=== PATIENT | female | born 1955 | race Caucasian/White ===

== ENCOUNTER 2016-04-05 16:54 | Inpatient (IN) | payer BC ==
[2016-04-05] MEDS ORDERED: ALPRAZolam TAB* 0.5 MG PO PRN (17:22)
[2016-04-05] MEDS: NS 0.9% 1000 ML* 1,000 ML IV SCH (18:04)
[2016-04-05] MEDS: Enoxaparin(*) 40 MG/0.4 ML SYR SUBCUT SCH (21:19)
[2016-04-05] MEDS ORDERED: oxyCODONE/Acetamin 5/325 MG* TAB ONE (23:59)
[2016-04-06] MEDS ORDERED: cefTAZidime 2 GM in NS 0.9% 100 ML* 100 ML IVPB SCH ×2
[2016-04-06] MEDS: CEFTAZIDIME 2 GM IVPB SCH ×8 (00:08→23:53)
[2016-04-06] MEDS: NS 0.9% 1000 ML* 1,000 ML IV SCH ×3 (04:47→22:47)
[2016-04-06 06:44] LABS: Hematocrit 26 % (35-47); Hemoglobin 8.3 g/dl (12.0-16.0); Mean Corpuscular HGB Conc 32 g/dl (31-36); Mean Corpuscular Hemoglobin 30 pg (27-31); Mean Corpuscular Volume 93 fL (80-97); Mean Platelet Volume 8 um3 (7.4-10.4); Red Blood Count 2.75 10^6/ul (4.0-5.4); Red Cell Distribution Width 17 % (10.5-15); White Blood Count 11.9 10^3/ul (3.5-10.8)
[2016-04-06 06:54] LABS: Albumin 2.8 g/dL (3.2-5.2); BUN/Creatinine Ratio 12.5 (8-20); Calcium 8.2 mg/dL (8.6-10.3); EGFR African American 121.3 (>60); EGFR Non-African American 94.3 (>60); Globulin 2.8 g/dL (2-4); Potassium 3.8 mmol/L (3.5-5.0); Total Bilirubin 0.5 mg/dL (0.2-1.0); Total Protein 5.6 g/dL (6.4-8.9)
[2016-04-06] MEDS: Enoxaparin(*) 40 MG/0.4 ML SYR SUBCUT SCH (16:24)
[2016-04-06] MEDS: oxyCODONE/Acetamin 5/325 MG* TAB PO PRN (19:16)
[2016-04-07] MEDS: oxyCODONE/Acetamin 5/325 MG* TAB PO PRN ×2 (05:05→16:00)
[2016-04-07 05:33] LABS: Hematocrit 25 % (35-47); Hemoglobin 8.1 g/dl (12.0-16.0); Mean Corpuscular HGB Conc 33 g/dl (31-36); Mean Corpuscular Hemoglobin 31 pg (27-31); Mean Corpuscular Volume 92 fL (80-97); Mean Platelet Volume 8 um3 (7.4-10.4); Red Blood Count 2.66 10^6/ul (4.0-5.4); Red Cell Distribution Width 17 % (10.5-15); White Blood Count 10.6 10^3/ul (3.5-10.8)
[2016-04-07] MEDS ORDERED: NS 0.9% 1000 ML* 1,000 ML IV SCH (08:00)
[2016-04-07] MEDS: CEFTAZIDIME 2 GM IVPB SCH ×6 (08:46→23:51)
[2016-04-07] MEDS: Enoxaparin(*) 40 MG/0.4 ML SYR SUBCUT SCH (17:41)
[2016-04-08] MEDS: oxyCODONE/Acetamin 5/325 MG* TAB PO PRN ×2 (04:21→08:36)
[2016-04-08 07:36] VITALS: BP 90/53
[2016-04-08] MEDS: CEFTAZIDIME 2 GM IVPB SCH ×2 (08:39)
--- NOTE | 2016-04-08 09:47 | DS ---
DISCHARGE SUMMARY: DATE OF ADMISSION: 04/05/16 DATE OF DISCHARGE: 04/08/16 PRINCIPAL DIAGNOSES: 1. Sepsis with pneumonia, found on radiographic findings. 2. History of metastatic breast cancer. HISTORY OF PRESENT ILLNESS: Briefly, the patient was seen at the office for sick call and subsequently was admitted with sepsis thereafter after evaluation. She was pancultured and placed on IV antibiotics and as a result, the chest x-ray revealed a consolidation in the chest. She had significant mental status changes at the time of her admission, which subsequently has resolved to her baseline. The cultures were unrevealing in terms of a primary sepsis of taylor; however, we will extend her antibiotic coverage to p.o. Augmentin for 1 additional week at 875 b.i.d. DISCHARGE MEDICATIONS: Her additional discharge medications will include: 1. Xanax 0.25 mg p.o. t.i.d. p.r.n. 2. Percocet 5/325 mg 1 every 4 hours as needed for pain. 3. Biotin 1000 mcg 3 tabs daily. 4. Zyrtec 10 mg p.o. daily. 5. Citracal DS 1 tab b.i.d. 6. Pepcid 20 mg p.o. every 8 hours. 7. Multivitamin each day. 8. Arcade fatty acids 1 cap twice daily. 9. Omeprazole 20 mg p.o. daily. 10. Zofran 8 mg p.o. q.8 hours p.r.n. nausea. 11. Probiotic capsule p.o. daily. 12. Crestor 10 mg p.o. daily. DIET: The patient will follow a regular diet. ACTIVITY LEVEL: Ad felipa. Her prescription was sent to [facility] [id number], [address] in [place]. FOLLOWUP: Her follow up will be on the 04/19/16 at the [place] office at 1120 hours and subsequently if able, then she will have chemotherapy to start on to continue her on Navelbine, 3 on, 1 off, and it will be held next week. The patient's vital signs were stable on the day of her discharge. Blood pressure 90/53, which has responded nicely to fluids; pulse 86; respiratory rate 16; and temperature 98.5. Of note, secondary to her altered mental status , she did get a spinal tap by Dr. Phipps which was malignant on 04/05/16. EDITH BULL [id number]/[facility] #: [id number] [facility]ENT[facility]orres
== END 2016-04-08 10:15 | disposition home or self-care (01) | DRG 720 ==
LOC: MED 17:22
PROVIDERS: ADMIT Internal Medicine Hematology & Oncology; ATTEND Internal Medicine Hematology & Oncology
DX: A41.9 Sepsis, unspecified organism (principal); J18.9 Pneumonia, unspecified organism; C79.31 Secondary malignant neoplasm of brain; Z85.3 Personal history of malignant neoplasm of breast; K21.9 Gastro-esophageal reflux disease without esophagitis; E78.5 Hyperlipidemia, unspecified; Z85.51 Personal history of malignant neoplasm of bladder; Z87.891 Personal history of nicotine dependence; Z83.3 Family history of diabetes mellitus; Z80.0 Family history of malignant neoplasm of digestive organs; Z80.52 Family history of malignant neoplasm of bladder
CPT/HCPCS: 1036F; 36415; 36591; 62270; 71020; 80053; 81003; 81015; 82533; 82945; 83605; 84157; 85025; 87040; 88112; 89051; 96361; 96365; 99212; 99223; 99232; 99238; A9270-GY; G0463; G8427; J0713; J1642; J1650

== ENCOUNTER 2016-04-15 18:03 | Observation (INO) | payer BC ==
[2016-04-15 22:23] LABS: Hematocrit 33 % (35-47); Mean Corpuscular HGB Conc 33 g/dl (31-36); Mean Corpuscular Hemoglobin 30 pg (27-31); Mean Corpuscular Volume 92 fL (80-97); Mean Platelet Volume 7 um3 (7.4-10.4); Red Blood Count 3.65 10^6/ul (4.0-5.4); Red Cell Distribution Width 17 % (10.5-15)
[2016-04-15 22:36] LABS: Albumin 3.8 g/dL (3.2-5.2); BUN/Creatinine Ratio 14.9 (8-20); Calcium 10.1 mg/dL (8.6-10.3); EGFR African American 115.1 (>60); EGFR Non-African American 89.5 (>60); Globulin 4.2 g/dL (2-4); Potassium 4.5 mmol/L (3.5-5.0); Total Bilirubin 0.4 mg/dL (0.2-1.0)
--- NOTE | 2016-04-15 22:56 | RAD ---
Indication: Shortness of breath. 2 views of the chest including dual energy PA views are reviewed. Loculated right pleural effusion is noted. Chronic interstitial fibrosis is noted. When compared to previous exam of April 05, 2016 no significant change is noted. IMPRESSION: Loculated right pleural effusion with right upper lobe and right basilar infiltrate. Left lung field is clear.
[2016-04-15] MEDS ORDERED: Iodixanol* (CONTRAST) 320 MG/ML 100 ML SDV IV ONE (23:43)
[2016-04-16] MEDS ORDERED: ALPRAZolam TAB* 0.25 MG PO ONE (01:51)
[2016-04-16] MEDS ORDERED: Ondansetron TAB* 4 MG PO PRN (03:02)
[2016-04-16] MEDS ORDERED: ALPRAZolam TAB* 0.25 MG PO PRN (03:02)
[2016-04-16] MEDS ORDERED: ONDANSETRON HCL 8 MG PO PRN (03:02)
[2016-04-16] MEDS ORDERED: oxyCODONE/Acetamin 5/325 MG* TAB PO PRN (03:02)
[2016-04-16] MEDS ORDERED: Piperac/Tazob 3.375 gm in NS* 3.375 GM/100 ML BAG IVPB ONE (04:30)
[2016-04-16] MEDS ORDERED: Heparin VIAL(*) 5000 UNITS/ML VIAL (FIVE THOUSAND) SUBCUT SCH (06:00)
--- NOTE | 2016-04-16 07:53 | RAD ---
INDICATION: Shortness of breath, evaluate for pulmonary embolism. History of lung and breast carcinoma. COMPARISON: Comparison is made with a prior CT angiogram of the chest from January 30, 2016. TECHNIQUE: A CT angiogram of the chest was performed with intravenous following intravenous injection of 64 ml of Visipaque 320 nonionic contrast. Contiguous axial sections were obtained from the lung apices through the lung bases. Images were reconstructed in the coronal and sagittal planes. FINDINGS: There is relatively homogeneous opacification of the pulmonary arteries. No intraluminal filling defect or pulmonary embolism is seen. The heart is within normal limits in size. No pericardial effusion is present. The thoracic aorta is normal in caliber and demonstrates homogeneous contrast opacification. 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 No significant enlarged mediastinal or hilar lymph nodes are seen. There is volume loss within the right lung which is unchanged. There are new masslike infiltrates present in the right upper lobe measuring up to 2.8 cm in size. There is a persistent masslike density present in the right lower lobe measuring 4.3 cm in size. There is a small right pleural effusion which appears unchanged. There are multiple hypodense lesions present throughout the liver which is enlarged which have progressed from the prior study. There are multiple sclerotic lesions present within the dorsal spine, sternum, right scapula which appear unchanged. IMPRESSION: 1. NO EVIDENCE FOR PULMONARY EMBOLISM. 2. RIGHT LUNG VOLUME LOSS AND SMALL RIGHT PLEURAL EFFUSION, UNCHANGED. 3. NEW MASSLIKE INFILTRATES IN THE RIGHT UPPER LOBE. 4. RIGHT LOWER LOBE MASSLIKE DENSITY, UNCHANGED. 5. MULTIPLE HEPATIC LESIONS CONSISTENT WITH METASTATIC DISEASE DEMONSTRATING INTERVAL PROGRESSION. 6. MULTIPLE SCLEROTIC METASTATIC OSSEOUS LESIONS, UNCHANGED.
[2016-04-16] MEDS ORDERED: Piperac/Tazob 3.375 gm in NS* 3.375 GM/100 ML BAG IVPB SCH (08:30)
--- NOTE | 2016-04-16 08:36 | HP ---
HISTORY AND PHYSICAL: DATE OF ADMISSION: 04/16/16 CHIEF COMPLAINT: Shortness of breath. HISTORY OF PRESENT ILLNESS: The patient is a 60-year-old woman with a known history of metastatic breast cancer who was actually in the hospital just last week with pneumonia and discharged on 04/08/16 who presents today with acute shortness of breath. The patient had a CT scan of her chest which showed no pulmonary embolism, but a new mass-like area of incomplete consolidation. When evaluating the patient she does complain of shortness of breath, but seems fairly uncomfortable lying in bed with no supplemental oxygen. She does seem, however, somewhat confused. PAST MEDICAL HISTORY: Significant for breast cancer. She was diagnosed in 2000 , had lumpectomy and chemotherapy, and 5 years of tamoxifen completed in 2006. She has had a pleural effusion drained several times. She also has GERD, hyperlipidemia, bladder cancer in 2006. PAST SURGICAL HISTORY: Breast biopsy, hysterectomy, LILIANA-BSO after diagnosis, lung biopsy, port placement, bladder repair in 2004, lumpectomy in 2000. CURRENT MEDICATIONS: 1. Alprazolam 0.25 mg 3 times a day as needed. 2. Multivitamin one tablet in the morning. 3. Citracal one tablet daily. 4. Pelham 3 fatty acids one capsule 3 times a day. 5. Zofran 4 mg every 6 hours as needed. 6. Zofran 8 mg every 8 hours as needed. 7. Crestor 10 mg daily. 8. Probiotic one capsule daily. 9. Percocet every 6 hours as needed. 10. Biotin 3 tablets daily. ALLERGIES: Allergy/adverse reaction to CIPRO. FAMILY HISTORY: Father had colon cancer, brother has diabetes. SOCIAL HISTORY: The patient is . Quit smoking 10 years ago and smoked a pack 25 years. Occasional alcohol. Lives in [place]. Two children. Retired. is her healthcare proxy. REVIEW OF SYSTEMS: A 14-point review of systems is completed with the patient. All pertinent positives and negatives are in the history of present illness, otherwise it is negative. PHYSICAL EXAMINATION GENERAL: A pleasant woman lying in bed, in no acute distress. VITAL SIGNS: Blood pressure 106/78, pulse ox 97%, respiratory rate 19 breaths per minute, heart rate 97 beats per minute, temperature 98.4 degrees. HEENT: Normocephalic and atraumatic. Pupils are equal, round and reactive to light. Moist mucous membranes. NECK: Supple. No JVD, bruits, palpable thyroid or lymphadenopathy. CHEST: Clear to auscultation and percussion bilaterally. CARDIOVASCULAR: S1, S2 appreciated. ABDOMEN: Positive bowel sounds in all 4 quadrants. Soft, nontender, and nondistended. No hepatosplenomegaly. EXTREMITIES: No cyanosis, clubbing, or edema. +2 peripheral pulses bilaterally. NEUROLOGIC: Alert and oriented x3. Moves all extremities. SKIN: No distinct rashes or abnormalities. LABORATORY DATA: White count 9.0, hemoglobin 10.0, hematocrit 33, platelets 264. Sodium 135, potassium 4.0, chloride 100, CO2 28, BUN 10, creatinine 0.27, glucose 142. CTA of the chest was read as no pulmonary embolism identified. New mass-like area of incomplete consolidation in the right upper lobe, persistent loculated right pleural effusion. Stable appearance of right lower lobe mass-like structure consolidation, increasing in size and liver lesions suspicious for metastases. Stable appearance of osseous metastases. Chest x-ray - loculated right pleural effusion of the right upper lobe and right basilar infiltrate, left lung is clear. ASSESSMENT AND PLAN: 1. Shortness of breath. The patient actually seems quite comfortable now. She may have a new area of consolidation, but I am not sure this is any different from what she just had a week ago. We will admit her under observation, place her on Zosyn in case of a new pneumonia, and ask oncology to see her. My guess is a lot of this is not new and can be managed as an outpatient, but will give the benefit of the doubt with the seriousness of her underlying disease. 2. GERD. Stable. Currently not receiving PPI, will monitor. 3. FEN. Regular diet. 4. DVT prophylaxis. Heparin subcu. 5. The patient is a full code. TIME SPENT: Over 80 minutes were spent on this H and P, more than 45 minutes of which were spent in direct [id number] contact with the patient in evaluation, physical exam, counseling, and coordination of care. CC: Dr. Sandy Romo; Yisel Lockett MD * [id number]/[facility] #: [id number] MTDD
[2016-04-16] MEDS ORDERED: Multivitamins/Minerals TAB PO SCH (09:00)
[2016-04-16] MEDS ORDERED: CMCS: OMEGA-3 FATTY ACIDS (NF) 1,000 MG CAP PO SCH (09:00)
[2016-04-16] MEDS ORDERED: Lactobacillus Acidophilu (GG)* 1 CAP CAP PO SCH (09:00)
[2016-04-16] MEDS ORDERED: Atorvastatin* 20 MG TAB PO SCH (09:00)
[2016-04-16] MEDS ORDERED: Calcium/Vitamin D TAB 250/125* TAB PO SCH (09:00)
[2016-04-16 13:21] VITALS: BP 99/62
--- NOTE | 2016-04-16 20:31 | DS ---
DISCHARGE SUMMARY: DATE OF ADMISSION: 04/16/16 at approximately 4:00 a.m. DATE OF DISCHARGE: 04/16/16 at approximately 1:00 p.m. DISCHARGE DIAGNOSES: 1. Pneumonia: Right upper lobe mass with bronchial air flow concerning for progressive on discharge 04/08/16. 2. Metastatic breast cancer: Currently being treated with Navelbine. 3. Hyperlipidemia: On statin. 4. Gastroesophageal reflux disease: Stable on Prilosec. DISCHARGE MEDICATIONS: 1. Levofloxacin 750 mg p.o. daily. 2. Biotin 3 tabs p.o. daily. 3. Multivitamin 1 tab q.a.m. 4. Mulberry-3 fatty acids 1 cap t.i.d. 5. Rosuvastatin 10 mg daily. 6. Calcium and vitamin D 1 tab daily. 7. Oxycodone/acetaminophen 5/325 one tab p.o. q.6 hours p.r.n. pain. 8. Probiotic 1 cap p.o. daily. 9. Alprazolam 0.25 mg p.o. t.i.d. p.r.n. anxiety. 10. Ondansetron 4 mg p.o. q.6 hours p.r.n. nausea. HOSPITAL COURSE: Please see admission note for full H and P; however briefly, Ms. Mendoza is well known to our service due to her unfortunate diagnosis of metastatic breast cancer with progression to the [employer] in November of 2015. She presented to the ER very late in the evening of 04/15/16 with increasing shortness of breath following a discharge from the hospital on 04/08/16 for sepsis and pneumonia. At that time, she was discharged on p.o. Augmentin for a full 7-day course with followup plan in our office on 04/19/16. In the ER, Ms. Mendoza's vital signs were all stable with no temperature and low BP, though ultimately reasonably stable for the patient, in our office she generally runs 90s/50s. Her O2 sat was stable. However, her chest x-ray and CTA revealed continued concern for pneumonia versus mass. On review of the slides with Dr. Romo, we agree this appears to be consolidation rather than mass. On admission, she was started on Zosyn IV. This a.m., she remains very stable with normal vital signs and her oxygen saturation in the 90s on room air. She is feeling well and agrees to management as an outpatient. She will be transitioned to Levaquin 750 mg p.o. daily for a planned 14-day course. She will see Dr. Romo in followup on 04/19/16 at 11:20 in the [place] [facility] as previously planned. She states understanding of management as an outpatient , with understanding that if she is to spike fevers or become confused, she needs to be evaluated again. At this time, there is no evidence for sepsis as her vital signs are stable for her condition. Again, plan is to increase coverage with levofloxacin. Plan of care was reviewed at length with Cathie Reji who denies further question, states understanding and agrees to plan of care. TIME SPENT: Greater than 40 minutes were spent with greater than 50% face-to- face counseling. DEEPA CARR, GUTIERREZ [id number]/[facility] #: [id number] [facility]OR
--- NOTE | 2016-04-28 23:57 | ED ---
Eusebia Mcnamara SooYoung, scribed for Nadeem Dowling MD on 04/15/16 at 2217 . Shortness of Breath - HPI Summary HPI Summary: A 60 y/o F presents to ED with c/o intermittent SOB, tonight is the third episode this week. Occurs while at rest and during exertion. Describes the chest sensation as "being heavy." Denies cough. She was seen last week in ED and received a spinal tap. Dx: PNA and sepsis, and was admitted to [facility]. She went home one week ago, and finished her ABX course yesterday. Pt is currently undergoing chemo for metastasized breast CA. CA present in bladder, brain. No PMHx of blood clots, pedal edema. - History of Current Complaint Chief Complaint: EDShortnessOfBreath Time Seen by Provider: 04/15/16 22:14 Hx Obtained From: Patient, Family/Issuing Operator - daughter, Onset/Duration: Lasting Weeks Dyspnea At: Rest - and exertion - Allergy/Home Medications Allergies/Adverse Reactions: Allergies Allergy/AdvReac Type Severity Reaction Status Date / Time Ciprofloxacin [From Cipro] AdvReac Nausea And Verified 02/03/16 09:39 Vomiting PMH/Surg Hx/FS Hx/Imm Hx Previously Healthy: No Endocrine/Hematology History: Denies: Hx Diabetes, Hx Systemic Lupus Erythematosus, Hx Thyroid Disease Cardiovascular History: Reports: Hx Hypercholesterolemia Denies: Hx Congestive Heart Failure, Hx Hypertension, Hx Pacemaker/ICD Respiratory History: Reports: Hx Lung Cancer Denies: Hx Asthma, Hx Chronic Obstructive Pulmonary Disease (COPD) GI History: Reports: Hx Gastroesophageal Reflux Disease Denies: Hx Ulcer History: Denies: Hx Dialysis, Hx Renal Disease Musculoskeletal History: Denies: Hx Rheumatoid Arthritis Sensory History: Reports: Hx Contacts or Glasses Denies: Hx Hearing Aid Opthamlomology History: Reports: Hx Contacts or Glasses Psychiatric History: Denies: Hx Panic Disorder - Cancer History Cancer Type, Location and Year: BREAST AND BLADDER, mets to right lung d/t breast ca Hx Chemotherapy: Yes - INFUSION - Surgical History Surgery Procedure, Year, and Place: RIGHT BREAST LUMPECTOMY,2000. 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 - Immunization History Date of Tetanus Vaccine: UTD Date of Influenza Vaccine: 2015 Infectious Disease History: No Infectious Disease History: Reports: Hx Shingles Denies: Hx Hepatitis, Hx Human Immunodeficiency Virus (HIV), Traveled Outside the [place] in Last 30 Days - Social History Occupation: Retired Lives: With Family Alcohol Use: Occasionally Hx Substance Use: No Substance Use Type: Reports: None Hx Tobacco Use: Yes Smoking Status (MU): Former Smoker Review of Systems Negative: Fever, Chills Negative: Erythema Negative: Sore Throat Positive: Chest Pain - "feels heaviness" Positive: Shortness Of Breath. Negative: Cough Negative: Abdominal Pain, Vomiting, Nausea Negative: dysuria, hematuria Negative: Myalgia, Edema Negative: Rash Neurological: Other - neg: dizziness All Other Systems Reviewed And Are Negative: Yes Physical Exam - Summary Physical Exam Summary: Constitutional: Well-developed, Well-nourished, Alert. (-) Distressed Skin: Warm, Dry HENT: Normocephalic; Atraumatic Eyes: Conjunctiva normal Neck: Musculoskeletal ROM normal neck. (-) JVD, (-) Stridor, (-) Tracheal deviation Cardio: Rhythm regular, rate normal, Heart sounds normal; Intact distal pulses; The pedal pulses are 2+ and symmetric. Radial pulses are 2+ and symmetric. (-) Murmur Pulmonary/Chest wall: Effort normal. (-) Respiratory distress, (-) Wheezes, MILD CRACKLES IN R LOWER LUNG Abd: Soft, (-) Tenderness, (-) Distension, (-) Guarding, (-) Rebound Musculoskeletal: (-) Edema Lymph: (-) Cervical adenopathy Neuro: Alert, Oriented x3 Psych: Mood and affect Normal Triage Information Reviewed: Yes Vital Signs On Initial Exam: Initial Vitals Temp Pulse Resp BP Pulse Ox 98.4 F 96 16 98/59 98 04/15/16 18:23 04/15/16 18:23 04/15/16 18:23 04/15/16 18:23 04/15/16 18:23 Vital Signs Reviewed: Yes Diagnostics - Vital Signs Vital Signs Temp Pulse Resp BP Pulse Ox 04/15/16 18:23 98.4 F 96 16 98/59 98 - Laboratory Result Diagrams: 04/15/16 21:50 04/15/16 21:50 Lab Statement: Any lab studies that have been ordered have been reviewed, and results considered in the medical decision making process. - Radiology CXR Xray Interpretation: Positive (See Comments) - R LUNG PLUERAL EFFUSION AND MASS Radiology Interpretation Completed By: ED Physician - CT CHEST CTA CT Interpretation: No Acute Changes - IMPRESSION: no PE identified. CT Interpretation Completed By: Radiologist Re-Evaluation - Re-Evaluation 1 Re-Evaluation Time: 02:08 Change: Unchanged Comment: Discussing results with pt. Course/Dx - Course Course Of Treatment: A 60 y/o F undergoing chemotherapy has had multiple episodes of SOB this week. Associated sx: chest heaviness. Denies cough. Released from [facility] one week ago after being treated for PNA and sepsis. Finished course of ABX yesterday. Trop at 2150 was 0.00. CXR read by Dr. Dowling showed pleural effusion and mass in R lung. Chest CT shows no evidence of PE. 0226: Spoke with hospitalist, Dr. Addison. Pt will be admitted to [facility]. - Diagnoses Provider Diagnoses: Lung mass, Metastatic breast cancer, Shortness of breath - Physician Notifications Discussed Care of Patient With: Dr Addison, hospitalist Time Discussed With Above Provider: 02:26 Instructed by Provider To: Admit As Inpatient Discharge - Discharge Plan Condition: Stable Disposition: ADMITTED TO [facility] Referrals: Yisel Lockett MD [Primary Care Provider] - The documentation as recorded by the Eusebia gordon SooYoung accurately reflects the service I personally performed and the decisions made by , Nadeem Dowling MD.
== END 2016-04-16 13:45 | disposition home or self-care (01) ==
LOC: ED 18:03 → MED 04-16 03:29
PROVIDERS: ADMIT Internal Medicine; ATTEND Internal Medicine Hematology & Oncology
DX: J18.9 Pneumonia, unspecified organism (principal); C50.919 Malignant neoplasm of unspecified site of unspecified female breast; C79.31 Secondary malignant neoplasm of brain; C79.51 Secondary malignant neoplasm of bone; E78.5 Hyperlipidemia, unspecified; K21.9 Gastro-esophageal reflux disease without esophagitis; R06.02 Shortness of breath; Z79.899 Other long term (current) drug therapy; Z88.1 Allergy status to other antibiotic agents; Z87.891 Personal history of nicotine dependence; J90 Pleural effusion, not elsewhere classified; K76.9 Liver disease, unspecified
CPT/HCPCS: 36415; 71020; 71275; 80053; 83605; 83880; 84484; 85025; 87040; 96374; 96375; 99217; 99239; 99284; A9270-GY; G0378; J2543; Q9967